=== PATIENT | male | born 1950 | race Caucasian/White ===

== ENCOUNTER 2016-08-13 05:40 | Outpatient (CLI) | payer MEDICARE, MEDICAID ==
[~2016-08-13] VITALS: Ht 165.1 cm; Wt 72.8 kg
[~2016-08-13 05:40] MED LIST: ACET325T49 PO; AMLO5TAB2 PO; BISO1TAB3 PO; CARB15DR87 EACH EAR; CEFD300C3 PO; EUCA50OI5 TP; FENO135C4 PO; OMEG-160 PO
--- OUTSIDE RECORDS SUMMARY | 2016-08-13 05:43 | XMS REPORT | Continuity of Care Document ---
Author Author [facility] Organization [facility] Address Unknown Phone Unavailable Care Team Providers Care Glove Sewer Name Role Phone GALILEA OVALLE DO PCP Insurance Providers Payer Name Policy Number Subscriber Name Relationship Wps Medicare [id number] Sage Ojeda 18 Self / Same As Patient Medicaid [place] [id number] Sage Ojeda 18 Self / Same As Patient Advance Directives Directive Response Recorded Date/Time Advance Directives Yes 07/13/16 4:48pm Health Care Power of Unionmelt Operator Yes 07/13/16 4:48pm Organ Donor No 07/13/16 4:48pm Resuscitation Status Full Code 07/13/16 4:48pm Chief Complaint and Reason for Visit Chief Complaint FEVER, SEVER SEPSIS Reason for Visit Fever Severe sepsis Problems Active Problems Medical Problem Onset Date Status Fever Unknown Acute Severe sepsis Unknown Acute Medications Current Home Medications Medication Dose Units Route Directions Days/Qty Instructions Start Date Amlodipine Besylate 5 Mg 5 Mg Oral Daily 07/13/16 Bisoprolol Fumarate/Hctz 1 Each 1 Tab Oral Daily@0700 07/13/16 Fenofibric Acid (Choline) 135 Mg 135 Mg Oral Daily 07/13/16 [place]-3/Dha/Epa/Fish Oil 1 Each 1,000 Mg Oral Twice A Day 07/13/16 Eucalyptus Oil/Menthol/Camphor 50 Gm Topical Bedtime APPLIES TO TOE NAILS AT NIGHT AFTER HIS SHOWER 07/13/16 Acetaminophen 325 Mg 650 Mg Oral Daily as needed for Fever TAKES 2 ( 325 MG) TABLETS 07/13/16 Carbamide Peroxide 15 Ml 10 Drops Each Ear As Directed USES DAILY FOR 10 DAYS PRIOR TO APPOINTMENT 07/13/16 Cefdinir (Omnicef) 300 Mg 300 Mg Oral Twice A Day 12 07/15/16 Social History Social History Problem Response Recorded Date/Time Alcohol Use Denies Use 07/13/2016 4:50pm Recreational Drug Use No 07/13/2016 4:50pm Recent Foreign Travel No 07/13/2016 5:14pm Recent Infectious Disease Exposure No 07/13/2016 5:14pm Smoking Status Never a Smoker 07/13/2016 5:12pm Recent Hopitalizations No 07/13/2016 4:50pm Query Response Start Date Stop Date Smoking Status Never a Smoker Hospital Discharge Instructions No hospital discharge instructions. Plan of Care Discharge Date 07/15/16 1:32pm Disposition 01 HOME, SELF-CARE Instructions/Education Provided Fever, Adult (DC) Prescriptions See Medication Section Referrals GALILEA OVALLE DO (Unspecified) - 07/21/16 Address: [address] [place] [phone] Reason(s) for Referral: APPT AT 10:30AM Functional Status Query Response Date Recorded Patient Orientation Person Place Situation MR July 15, 2016 1:35pm Comprehension Ability Understands Concepts July 15, 2016 8:07am Allergies, Adverse Reactions, Alerts No known allergies. Immunizations No immunization records. Vital Signs Acute Vital Signs Vital Response Date/Time Temperature (Fahrenheit) 98.2 degrees F (97.6 - 99.5) 07/15/2016 12:00pm Temperature (Calculated Celsius) 36.88574 degrees C (36.4 - 37.5) 07/15/2016 12:00pm Temperature Source Tympanic 07/15/2016 12:00pm Pulse Rate (adult) 67 bpm (60 - 90) 07/15/2016 12:00pm Respiratory Rate 19 bpm (12 - 24) 07/15/2016 12:00pm O2 Sat by Pulse Oximetry 97 % (88 - 100) 07/15/2016 12:00pm Blood Pressure 141/69 mm Hg 07/15/2016 12:00pm Blood Pressure Mean 93 mm Hg 07/15/2016 12:00pm Pain Numeric Pain Scale 0-No Pain 07/15/2016 1:32pm Height (Feet) 5 feet 07/13/2016 1:40pm Height (Inches) 7 inches 07/13/2016 1:40pm Height (Calculated Centimeters) 170.251682 cm 07/13/2016 1:40pm Weight (Pounds) 170 pounds 07/14/2016 6:41am Weight (Ounces) 8.0 oz 07/14/2016 6:41am Weight (Calculated Grams) 33202.500 gm 07/14/2016 6:41am Weight (Calculated Kilograms) 77.908052 kilograms 07/14/2016 6:41am Capillary Refill Capillary Refill Less Than 3 Seconds 07/14/2016 4:00am Height 5 ft 7 in Weight 170 lb Body Mass Index 26.7 kg/m^2 Results Laboratory Results Test Name Result Units Flags Reference Collection Date/Time Result Date/ Time Comments White Blood Count 7.9 10^3/uL 4.3-11.0 07/15/2016 4:48am 07/15/2016 5: 21am Red Blood Count 4.55 10^6/uL 4.35-5.85 07/15/2016 4:48am 07/15/2016 5: 21am Hemoglobin 14.0 G/DL 13.3-17.7 07/15/2016 4:48am 07/15/2016 5:21am Hematocrit 40 % 40-54 07/15/2016 4:48am 07/15/2016 5:21am Mean Corpuscular Volume 89 FL 80-99 07/15/2016 4:48am 07/15/2016 5: 21am Mean Corpuscular Hemoglobin 31 PG 25-34 07/15/2016 4:48am 07/15/2016 5: 21am Mean Corpuscular Hemoglobin Concent 35 G/DL 32-36 07/15/2016 4:48am 5:21am Red Cell Distribution Width 12.9 % 10.0-14.5 07/15/2016 4:48am 2015 5:21am Platelet Count 193 10^3/uL 130-400 07/15/2016 4:48am 07/15/2016 5:21am Mean Platelet Volume 11.7 FL H 7.4-10.4 07/15/2016 4:48am 07/15/2016 5: 21am Neutrophils (%) (Auto) 54 % 42-75 07/15/2016 4:48am 07/15/2016 5:21am Lymphocytes (%) (Auto) 24 % 12-44 07/15/2016 4:48am 07/15/2016 5:21am Monocytes (%) (Auto) 13 % H 0-12 07/15/2016 4:48am 07/15/2016 5:21am Eosinophils (%) (Auto) 9 % 0-10 07/15/2016 4:48am 07/15/2016 5:21am Basophils (%) (Auto) 0 % 0-10 07/15/2016 4:48am 07/15/2016 5:21am Neutrophils # (Auto) 4.3 X 10^3 1.8-7.8 07/15/2016 4:48am 07/15/2016 5: 21am Lymphocytes # (Auto) 1.9 X 10^3 1.0-4.0 07/15/2016 4:48am 07/15/2016 5: 21am Monocytes # (Auto) 1.0 X 10^3 0.0-1.0 07/15/2016 4:48am 07/15/2016 5: 21am Eosinophils # (Auto) 0.7 10^3/uL H 0.0-0.3 07/15/2016 4:48am 07/15/2016 5 :21am Basophils # (Auto) 0.0 10^3/uL 0.0-0.1 07/15/2016 4:48am 07/15/2016 5: 21am Neutrophils % (Manual) 93 % 07/13/2016 1:50pm 07/13/2016 2:13pm Lymphocytes % (Manual) 1 % 07/13/2016 1:50pm 07/13/2016 2:13pm Monocytes % (Manual) 5 % 07/13/2016 1:50pm 07/13/2016 2:13pm Basophils % (Manual) 1 % 07/13/2016 1:50pm 07/13/2016 2:13pm Blood Morphology Comment NORMAL 07/13/2016 1:50pm 07/13/2016 2: 13pm Toxic Granulation 2+ 07/13/2016 1:50pm 07/13/2016 2:13pm Prothrombin Time 13.7 SEC 12.2-14.7 07/13/2016 1:50pm 07/13/2016 2: 14pm INR Comment 1.1 0.8-1.4 07/13/2016 1:50pm 07/13/2016 2:14pm INTERPRETIVE DATA SUGGESTED THERAPEUTIC RANGE FOR INR'S: VENOUS THROMBOSIS, PULMONARY EMBOLISM, OR PREVENTION OF SYSTEMIC EMBOLISM (EG. IN ATRIAL FIBRILLATION): 2.0 - 3.0 MECHANICAL PROSTHETIC HEART VALVES: 2.5 - 3.5* *NOTE: INR'S UP TO 4.5 MAY BE NECESSARY IN SELECTED GROUPS OF HIGH RISK PATIENTS. [place] [place] [employer] CONSENSUS CONFERENCE ON ANTITHROMBOTIC THERAPY (2000). Activated Partial Thromboplast Time 25 SEC 24-35 07/13/2016 1:50pm 2:14pm Urine Color YELLOW 07/13/2016 2:30pm 07/13/2016 2:52pm Urine Clarity CLEAR 07/13/2016 2:30pm 07/13/2016 2:52pm Urine pH 5 5-9 07/13/2016 2:30pm 07/13/2016 2:52pm Urine Specific [place] 1.020 1.016-1.022 07/13/2016 2:30pm 2015 2:52pm Urine Protein 1+ * NEGATIVE 07/13/2016 2:30pm 07/13/2016 2:52pm Urine Glucose (UA) 4+ * NEGATIVE 07/13/2016 2:30pm 07/13/2016 2:52pm Urine RBC (Auto) 1+ * NEGATIVE 07/13/2016 2:30pm 07/13/2016 2:52pm Urine Ketones 2+ * NEGATIVE 07/13/2016 2:30pm 07/13/2016 2:52pm Urine Nitrite NEGATIVE NEGATIVE 07/13/2016 2:30pm 07/13/2016 2:52pm Urine Bilirubin NEGATIVE NEGATIVE 07/13/2016 2:30pm 07/13/2016 2: 52pm Urine Urobilinogen 8 MG/DL * NORMAL 07/13/2016 2:30pm 07/13/2016 2:52pm Urine Leukocyte Esterase NEGATIVE NEGATIVE 07/13/2016 2:30pm 2015 2:52pm Urine RBC NONE /HPF 07/13/2016 2:30pm 07/13/2016 2:52pm Urine WBC NONE /HPF 07/13/2016 2:30pm 07/13/2016 2:52pm Urine Bacteria NEGATIVE /HPF 07/13/2016 2:30pm 07/13/2016 2:52pm Urine Squamous Epithelial Cells RARE /HPF 07/13/2016 2:30pm 2015 2:52pm Urine Crystals PRESENT /LPF * 07/13/2016 2:30pm 07/13/2016 2:52pm Urine Calcium Oxalate Crystals LARGE /LPF * 07/13/2016 2:30pm 2015 2:52pm Urine Casts NONE /LPF 07/13/2016 2:30pm 07/13/2016 2:52pm Urine Mucus NEGATIVE /LPF 07/13/2016 2:30pm 07/13/2016 2:52pm Urine Culture Indicated NO 07/13/2016 2:30pm 07/13/2016 2:52pm Sodium Level 142 MMOL/L 135-145 07/15/2016 4:48am 07/15/2016 5:39am Potassium Level 3.8 MMOL/L 3.6-5.0 07/15/2016 4:48am 07/15/2016 5:39am Chloride Level 112 MMOL/L H 98-107 07/15/2016 4:48am 07/15/2016 5:39am Carbon Dioxide Level 20 MMOL/L L 21-32 07/15/2016 4:48am 07/15/2016 5: 39am Anion Gap 10 MMOL/L 5-14 07/15/2016 4:48am 07/15/2016 5:39am Blood Urea Nitrogen 7 MG/DL 7-18 07/15/2016 4:48am 07/15/2016 5:39am Creatinine 0.75 MG/DL 0.60-1.30 07/15/2016 4:48am 07/15/2016 5:39am BUN/Creatinine Ratio 9 07/15/2016 4:48am 07/15/2016 5:39am Estimat Glomerular Filtration Rate > 60 07/15/2016 4:48am 2015 5:39am GFR INTERPRETIVE DATA UNITS FOR ESTIMATED GFR (eGFR): mL/min/1.73 M2 REFERENCE RANGE FOR ESTIMATED GFR (eGFR) eGFR NORMAL eGFR >60 MODERATELY DECREASED eGFR 30-59 SEVERLY DECREASED eGFR 15-29 KIDNEY FAILURE <15 (OR DIALYSIS) Glucose Level 97 MG/DL 70-105 07/15/2016 4:48am 07/15/2016 5:39am Glucometer 134 MG/DL H 70-110 07/15/2016 10:50am 07/15/2016 11:14am Calcium Level 8.2 MG/DL L 8.5-10.1 07/15/2016 4:48am 07/15/2016 5:39am Phosphorus Level 2.0 MG/DL L 2.3-4.7 07/15/2016 4:48am 07/15/2016 5:39am Magnesium Level 2.4 MG/DL 1.8-2.4 07/15/2016 4:48am 07/15/2016 5:39am Total Bilirubin 0.5 MG/DL 0.1-1.0 07/15/2016 4:48am 07/15/2016 5:39am Direct Bilirubin 0.2 MG/DL 0.0-0.3 07/14/2016 3:50am 07/14/2016 8:21am Indirect Bilirubin 0.3 MG/DL 07/14/2016 3:50am 07/14/2016 8:21am Alkaline Phosphatase 53 U/L 40-136 07/15/2016 4:48am 07/15/2016 5:39am Aspartate Amino Transf (AST/SGOT) 67 U/L H 5-34 07/15/2016 4:48am 2015 5:39am Alanine Aminotransferase (ALT/SGPT) 149 U/L H 0-55 07/15/2016 4:48am 5:39am Total Protein 6.0 G/DL L 6.4-8.2 07/15/2016 4:48am 07/15/2016 5:39am Albumin 3.7 G/DL 3.2-4.5 07/15/2016 4:48am 07/15/2016 5:39am Lactic Acid Level 1.0 MMOL/L 0.5-2.0 07/14/2016 3:50am 07/14/2016 4: 27am Lactic Acid Level 2.4 MMOL/L CH 0.5-2.0 07/13/2016 3:49pm 07/13/2016 4: 10pm RESULTS CALLED TO ANUSHKA AT 1610. RESULTS READ BACK: YES. Vancomycin Level Trough 8.4 UG/ML L 10.0-20.0 07/14/2016 3:52pm 2015 5:34pm Microbiology Results Procedure Source Result Collection Date/Time Result Date/Time Blood Culture Peripheral, Left Wrist No growth 07/13/2016 1:50pm 2015 2:50pm Blood Culture Peripheral, Rt Hand No growth 07/13/2016 1:57pm 07/14/2016 2: 50pm MRSA Screen Nasal MRSA not isolated 07/13/2016 4:25pm 07/15/2016 6:52am Procedures No known history of procedures. Encounters Encounter Location Arrival/Admit Date Discharge/Depart Date Attending Provider Discharged Inpatient [facility] 07/13/16 3:34pm 1:32pm GALILEA OVALLE DO Recent Diagnosis Fever Severe sepsis
== END 2016-08-13 15:00 ==
LOC: PREOP 05:40
PROVIDERS: ATTEND Surgery
DX: Z01.818 Encounter for other preprocedural examination (principal); Z12.11 Encounter for screening for malignant neoplasm of colon

== ENCOUNTER 2016-08-17 08:26 | Day surgery (SDC) | payer MEDICARE, MEDICAID ==
[~2016-08-17] VITALS: Ht 165.1 cm; Wt 72.8 kg
[~2016-08-17 08:26] MED LIST changes: +NS IV 1000 ML 1,000 ML ONE
--- OUTSIDE RECORDS SUMMARY | 2016-08-17 08:29 | XMS REPORT | Continuity of Care Document ---
Author Author [facility] Organization [facility] Address Unknown Phone Unavailable Care Team Providers Care Commissary Helper Name Role Phone GALILEA OVALLE DO PCP Insurance Providers Payer Name Policy Number Subscriber Name Relationship Wps Medicare [id number] Mya Ibanez 18 Self / Same As Patient Medicaid [place] [id number] Mya Ibanez 18 Self / Same As Patient Advance Directives Directive Response Recorded Date/Time Advance Directives Yes 08/13/16 12:36pm Health Care Power of Paleologist Yes 08/13/16 12:36pm Organ Donor No 08/13/16 12:36pm Resuscitation Status Full Code 08/13/16 12:36pm Problems Active Problems Medical Problem Onset Date Status Fever Unknown Acute Severe sepsis Unknown Acute Medications Current Home Medications Medication Dose Units Route Directions Days/Qty Instructions Start Date Amlodipine Besylate 5 Mg 5 Mg Oral Daily 07/13/16 Bisoprolol Fumarate/Hctz 1 Each 1 Tab Oral Daily@0700 07/13/16 Fenofibric Acid (Choline) 135 Mg 135 Mg Oral Daily 07/13/16 [place]-3/Dha/Epa/Fish Oil 1 Each 1,000 Mg Oral Twice A Day 07/13/16 Eucalyptus Oil/Menthol/Camphor 50 Gm Topical Bedtime APPLIES TO TOE NAILS AT NIGHT AFTER HIS SHOWER 07/13/16 Acetaminophen 325 Mg 650 Mg Oral Daily as needed for Fever TAKES 2 ( 325 MG) TABLETS 07/13/16 Carbamide Peroxide 15 Ml 10 Drops Each Ear As Directed USES DAILY FOR 10 DAYS PRIOR TO APPOINTMENT 07/13/16 Past Home Medications Medication Directions Ordered Status Cefdinir (Omnicef) 300 Mg Capsule, 300 Mg Oral Twice A Day 07/15/16 Discontinued Social History Social History Problem Response Recorded Date/Time Alcohol Use Denies Use 08/13/2016 12:36pm Recreational Drug Use No 08/13/2016 12:36pm Recent Foreign Travel No 08/13/2016 12:36pm Recent Infectious Disease Exposure No 08/13/2016 12:36pm Smoking Status Never a Smoker 08/13/2016 12:36pm Recent Hopitalizations No 08/13/2016 12:36pm Query Response Start Date Stop Date Smoking Status Never a Smoker Hospital Discharge Instructions No hospital discharge instructions. Plan of Care Discharge Date 08/13/16 3:00pm Prescriptions See Medication Section Functional Status No functional status results. Allergies, Adverse Reactions, Alerts No known allergies. Immunizations No immunization records. Vital Signs Acute Vital Signs Vital Response Date/Time Height (Feet) 5 feet 08/13/2016 12:35pm Height (Inches) 5.00 inches 08/13/2016 12:35pm Height (Calculated Centimeters) 165.852315 cm 08/13/2016 12:35pm Weight (Pounds) 160 pounds 08/13/2016 12:35pm Weight (Ounces) 8.0 oz 08/13/2016 12:35pm Weight (Calculated Grams) 18012.58 gm 08/13/2016 12:35pm Weight (Calculated Kilograms) 72.381113 kilograms 08/13/2016 12:35pm Calculated BMI 26.7 08/13/2016 12:35pm Results No known relevant diagnostic tests, laboratory data and/or discharge summary. Procedures No known history of procedures. Encounters Encounter Location Arrival/Admit Date Discharge/Depart Date Attending Provider Departed Clinic [facility] 08/13/16 5:40am 08/13/16 3: 00pm CED CASTRO DO
--- OUTSIDE RECORDS SUMMARY | 2016-08-17 08:29 | XMS REPORT | Continuity of Care Document ---
Author Author [facility] Organization [facility] Address Unknown Phone Unavailable Care Team Providers Care Refund Clerk Name Role Phone GALILEA OVALLE DO PCP Insurance Providers Payer Name Policy Number Subscriber Name Relationship Wps Medicare [id number] Mya Ibanez 18 Self / Same As Patient Medicaid [place] [id number] Mya Ibanez 18 Self / Same As Patient Advance Directives Directive Response Recorded Date/Time Advance Directives Yes 08/13/16 12:36pm Health Care Power of Pharmacovigilance Specialist Yes 08/13/16 12:36pm Organ Donor No 08/13/16 [...] 135 Mg 135 Mg Oral Daily 07/13/16 [place]-3/Dha/Epa/Fish Oil 1 Each 1,000 Mg Oral Twice [...] 5.00 inches 08/13/2016 12:35pm Height (Calculated Centimeters) 165.669526 cm 08/13/2016 12:35pm Weight (Pounds) 160 pounds 08/13/2016 12:35pm Weight (Ounces) 8.0 oz 08/13/2016 12:35pm Weight (Calculated Grams) 08807.58 gm 08/13/2016 12:35pm Weight (Calculated Kilograms) 72.945895 kilograms 08/13/2016 12:35pm Calculated BMI 26.7 08/13/2016 12:35pm Results No known relevant diagnostic tests, laboratory data and/or discharge summary. Procedures No known history of procedures. Encounters Encounter Location Arrival/Admit Date Discharge/Depart Date Attending Provider Departed Clinic [facility] 08/13/16 5:40am 08/13/16 3: 00pm CED CASTRO DO
[2016-08-17] MEDS ORDERED: MIDAZOLAM 2 MG/2 ML (VERSED) VIAL ONE (08:40)
[2016-08-17] MEDS ORDERED: proPOfol 200 MG/20 ML (DIPRIVAN) VIAL IV ONE (08:40)
[2016-08-17] MEDS ORDERED: NS IV 1000 ML 1,000 ML IV STA (08:53)
--- NOTE | 2016-08-17 08:56 | Progress Note-Pre Operative ---
Pre-Operative Progress Note H&P Reviewed The H&P was reviewed, patient examined and no changes noted. Date H&P Reviewed: Aug 17, 2016 Time H&P Reviewed: 08:55 Pre-Operative Diagnosis: family history colon cancer CED CASTRO DO Aug 17, 2016 08:56
--- NOTE | 2016-08-17 09:37 | Progress Note-Post Operative ---
Post-Operative Progess Note Pre-Operative Diagnosis family history colon cancer Post-Operative Diagnosis colon polyps Post-Op Procedure Note Date of Procedure: Aug 17, 2016 Name of Procedure: colonoscopy with hot bx polypectomy x 2 Procedure Note/Findings see note Anesthesia Type per track layer head Estimated blood loss (mL): none Specimen(s) collected ascending colon polyp, hepatic flexure colon polyp CED CASTRO DO Aug 17, 2016 09:37
--- NOTE | 2016-08-17 09:37 | Discharge Inst-Simple/Standard ---
Discharge Inst-Standard Patient Instructions/Follow Up Plan of Care/Instructions/FU: Follow up with Dr. Michael in 2 weeks Repeat colonosocopy in 5 years or sooner if changes to current conditions. Activity as Tolerated: Yes Discharge Diet: No Restrictions REBA AGRAWLA APRN Aug 17, 2016 09:36
[2016-08-17 09:54] VITALS: BP 162/77
[2016-08-17 09:55] VITALS: BP 114/76
[2016-08-17 10:20] VITALS: BP 156/99
[2016-08-17 10:40] VITALS: BP 156/99
--- NOTE | 2016-08-18 09:57 | OPERATIVE REPORT ---
PROCEDURE PHYSICIAN: CED MICHAEL DATE OF PROCEDURE: 08/17/2016 PREOPERATIVE DIAGNOSIS: Family history of colon cancer. POSTOPERATIVE DIAGNOSES: 1. Colon polyps. 2. Ascending colon and hepatic flexure polyp. PROCEDURE: Colonoscopy with hot biopsy polypectomy x2. SURGEON: Dr. Michael. ANESTHESIA: Per GAS PRODUCER. ESTIMATED BLOOD LOSS: None. COMPLICATIONS: None. INDICATIONS: The patient is a 65-year-old male with a family history of colon cancer. He understands the risks and benefits of the procedure and wished to proceed with the procedure. Consent was signed on the chart. PROCEDURE: The patient was taken to the endoscopy suite and placed in left lateral recumbent position. Timeout was performed. Digital rectal exam was performed. There were no palpable polyps, masses, or ulcerations. The scope was inserted in the rectum, advanced all of the way to the cecum with minimal difficulty. Prep was adequate with irrigation and suction. Once in the cecum, the scope was then slowly retracted back. Within the ascending colon, a small polyp was present which hot biopsy polypectomy was performed. The scope was then slowly retracted back. At the hepatic flexure another small polyp was present which hot biopsy polypectomy was performed. The scope was continued be slowly retracted back. There were no polyps, masses, ulcerations within the transverse colon, descending colon and sigmoid colon. In the rectum, the scope was also retroflexed noting no further pathology. The scope was returned to its normal position and slowly withdrawn until completely removed noting no further pathology. RECOMMENDATIONS: The patient will follow-up in the office in 2 weeks to discuss pathology results. We recommend repeat colonoscopy in 5 years due to family history of colon cancer and polyps. The patient, if he has any problems prior to that, should be reevaluated at that time. Job ID: [id number] Dictated Date: 08/17/2016 09:40:25 Information Systems Architect Date: 08/18/2016 09:51:11 / [email or web address]
== END 2016-08-17 10:40 | disposition home or self-care (01) ==
LOC: SDC 08:26
PROVIDERS: ATTEND Surgery
DX: Z12.11 Encounter for screening for malignant neoplasm of colon (principal); K63.5 Polyp of colon; Z80.0 Family history of malignant neoplasm of digestive organs